=== PATIENT | female | born 1990 | race Caucasian/White ===

== ENCOUNTER 2017-12-29 08:00 | Outpatient (CLI) | payer OTHER | END 2017-12-29 23:59 | disposition home or self-care (01) | LOC: LAB.R 08:00 | PROVIDERS: ATTEND Nurse Practitioner Obstetrics & Gynecology | DX: N89.8 Other specified noninflammatory disorders of vagina (principal) | CPT/HCPCS: 87480; 87510; 87660 ==

== ENCOUNTER 2018-01-19 15:06 | Outpatient (CLI) | payer OTHER | END 2018-01-19 23:59 | disposition home or self-care (01) | LOC: LAB.R 15:06 | PROVIDERS: ATTEND Nurse Practitioner Obstetrics & Gynecology | DX: N76.0 Acute vaginitis (principal) | CPT/HCPCS: 87480; 87510; 87660 ==

== ENCOUNTER 2019-11-12 00:02 | Outpatient (CLI) | payer OTHER | END 2019-11-12 00:03 | disposition EMS.NT | LOC: EMS 00:02 | PROVIDERS: ATTEND Surgery | DX: Z04.1 Encounter for examination and observation following transport accident (principal) ==

== ENCOUNTER 2020-03-06 16:25 | Outpatient (CLI) | payer OTHER ==
--- NOTE | 2020-03-07 17:12 | XRAY Report ---
Reason: COUGH Procedure Date: 03/06/2020 Accession Number: [id number] / [id number] Procedure: XR - Chest 2 View X-Ray CPT Code: 69159 Final Report FULL RESULT: EXAM: CHEST RADIOGRAPHY EXAM DATE: 03/06/2020 04:42 PM. CLINICAL HISTORY: Cough. Intermittent chest pain/pressure. Shortness of breath. COMPARISON: None. TECHNIQUE: 2 views. FINDINGS: Lungs/Pleura: No focal opacities evident. No pleural effusion. No pneumothorax. Normal volumes. Mediastinum: Heart and mediastinal contours are unremarkable. Other: Mild degenerative changes of the thoracic spine. IMPRESSION: 1. No acute disease in the chest. RADIA
== END 2020-03-06 16:26 | disposition home or self-care (01) ==
LOC: DI 16:25
PROVIDERS: ATTEND Nurse Practitioner Family
DX: R05 Cough (principal)
CPT/HCPCS: 71046

== ENCOUNTER 2021-03-07 15:54 | Outpatient (CLI) | payer OTHER ==
[2021-03-07 20:14] LABS: ALBUMIN 4.6 g/dL (3.2-5.5); ALBUMIN/GLOBULIN RATIO 1.7 (1.0-2.2); BILIRUBIN,TOTAL 0.8 mg/dL (0.2-1.0); CALCIUM 9.3 mg/dL (8.5-10.3); CREATININE 0.7 mg/dL (0.4-1.0); POTASSIUM 3.7 mmol/L (3.5-5.0); TOTAL PROTEIN 7.3 g/dL (6.7-8.2)
== END 2021-03-07 15:55 | disposition home or self-care (01) ==
LOC: LAB.S 15:54
PROVIDERS: ATTEND Nurse Practitioner Family
DX: R11.0 Nausea (principal); G25.81 Restless legs syndrome
CPT/HCPCS: 36415; 80053; 82728; 83540; 84466

== ENCOUNTER 2022-03-21 16:27 | Emergency (ER) | payer OTHER, MEDICAID ==
[2022-03-21] MEDS ORDERED: MAG HYDROX/AL HYDROX/SIMETH 30 ML UDC PO STA (16:56)
[2022-03-21] MEDS ORDERED: FAMOTIDINE 20 MG TABLET PO STA (16:56)
[2022-03-21] MEDS ORDERED: SUCRALFATE 1 GM/10 ML UDC PO STA (16:56)
--- NOTE | 2022-03-21 16:57 | ED Physician Documentation ---
History of Present Illness - Stated complaint Stated Complaint: ABD & CP - Chief complaint Chief Complaint: Cardiac - History obtained from History obtained from: Patient - History of Present Illness Timing: Today Pain level max: 7 Pain level now: 1 - Additonal information Additional information: Patient is a 31-year-old female who presents to the emergency department stating that she had epigastric pain radiating up through her chest today. This has been intermittent for several weeks. Seems to be worse after drinking coffee. She states that she had gastroesophageal reflux in her teenage years, but none since. No vomiting. No fevers. No chills. Review of Systems Ten Systems: 10 systems reviewed and negative Constitutional: denies: Fever, Chills Cardiac: denies: Chest pain / pressure Respiratory: denies: Cough GI: denies: Nausea, Vomiting, Diarrhea Skin: denies: Rash Musculoskeletal: denies: Neck pain, Back pain Neurologic: denies: Headache PD PAST MEDICAL HISTORY - Past Medical History Past Medical History: Yes GI: GERD - Past Surgical History Past Surgical History: No - Present Medications Home Medications: Ambulatory Orders Medication Instructions Recorded Confirmed Esomeprazole Magnesium [Nexium] 40 mg PO DAILY #30 cap.sr 03/21/22 Famotidine [Pepcid] 20 mg PO BID #60 tablet 03/21/22 Sucralfate [Carafate] 1 gm PO ACHS #60 tablet 03/21/22 - Allergies Allergies/Adverse Reactions: Allergies Allergy/AdvReac Type Severity Reaction Status Date / Time No Known Drug Allergies Allergy Verified 03/21/22 16:36 - Living Situation Living Arrangement: reports: At home - Social History Does the pt smoke?: Yes Smoking Status: Current every day smoker Does the pt drink ETOH?: No Does the pt have substance abuse?: No - Immunizations Immunizations are current?: Yes - POLST Patient has POLST: No PD ED PE NORMAL - Vitals Vital signs reviewed: Yes - General General: Alert and oriented X 3, No acute distress - HEENT HEENT: Moist mucous membranes - Neck Neck: Supple, no meningeal sign - Cardiac Cardiac: RRR, Strong equal pulses - Respiratory Respiratory: No respiratory distress, Clear bilaterally - Abdomen Abdomen: Soft, Non distended, Other (TTP epigastric/RUQ and LUQ. negative quezada's sign) - Back Back: No CVA TTP, No spinal TTP - Derm Derm: Warm and dry - Neuro Neuro: Alert and oriented X 3 - Psych Psych: Normal mood, Normal affect Results - Vitals Vitals: Vital Signs - 24 hr 03/21/22 03/21/22 03/21/22 16:30 16:37 17:23 Temperature 37.2 C Heart Rate 74 87 69 Respiratory 13 18 12 Rate Blood Pressure 156/89 H 156/89 H 106/65 O2 Saturation 100 99 100 03/21/22 03/21/22 17:49 18:00 Temperature Heart Rate 67 77 Respiratory 18 16 Rate Blood Pressure 105/73 98/63 O2 Saturation 100 100 Oxygen O2 Source Room air - EKG (time done) 1635 Rate: Rate (enter#) (79) Rhythm: NSR [place]: Normal Intervals: Normal DC QRS: Normal Ischemia: Normal ST segments - Labs Labs: Laboratory Tests 03/21/22 03/21/22 03/21/22 16:45 16:45 16:45 WBC 6.6 RBC 4.33 Hgb 14.2 Hct 41.0 MCV 94.7 MCH 32.8 H MCHC 34.6 RDW 11.9 L Plt Count 243 MPV 10.2 Neut # (Auto) 4.3 Lymph # (Auto) 1.9 [place] # (Auto) 0.4 Eos # (Auto) 0.0 Baso # (Auto) 0.0 Absolute Nucleated RBC 0.00 Nucleated RBC % 0.0 Sodium 138 Potassium 3.4 L Chloride 102 Carbon Dioxide 27 Anion Gap 9.0 BUN 7 Creatinine 0.7 Estimated GFR (MDRD) 97 Glucose 98 Calcium 9.2 Total Bilirubin 0.9 AST 20 ALT 18 Alkaline Phosphatase 33 L Troponin I High Sens < 2.3 L Total Protein 7.2 Albumin 4.5 Globulin 2.7 Albumin/Globulin Ratio 1.7 Lipase 32 Urine Color Urine Clarity Urine pH Ur Specific Williams Urine Protein Urine Glucose (UA) Urine Ketones Urine Occult Blood Urine Nitrite Urine Bilirubin Urine Urobilinogen Ur Leukocyte Esterase Ur Microscopic Review Urine Culture Comments Urine HCG, Qual 03/21/22 17:30 WBC RBC Hgb Hct MCV MCH MCHC RDW Plt Count MPV Neut # (Auto) Lymph # (Auto) [place] # (Auto) Eos # (Auto) Baso # (Auto) Absolute Nucleated RBC Nucleated RBC % Sodium Potassium Chloride Carbon Dioxide Anion Gap BUN Creatinine Estimated GFR (MDRD) Glucose Calcium Total Bilirubin AST ALT Alkaline Phosphatase Troponin I High Sens Total Protein Albumin Globulin Albumin/Globulin Ratio Lipase Urine Color YELLOW Urine Clarity CLEAR Urine pH 7.5 Ur Specific Williams 1.015 Urine Protein NEGATIVE Urine Glucose (UA) NEGATIVE Urine Ketones NEGATIVE Urine Occult Blood NEGATIVE Urine Nitrite NEGATIVE Urine Bilirubin NEGATIVE Urine Urobilinogen 0.2 (NORMAL) Ur Leukocyte Esterase NEGATIVE Ur Microscopic Review NOT INDICATED Urine Culture Comments NOT INDICATED Urine HCG, Qual NEGATIVE - Rads (name of study) cxr Radiology: Final report received, EMP read contemporaneously, See rad report RUQ US Radiology: Final report received, EMP read contemporaneously, See rad report PD MEDICAL DECISION MAKING - ED course Complexity details: reviewed results, re-evaluated patient, considered differential, d/w patient ED course: 31-year-old female with epigastric/upper abdominal/chest pain today. No acute findings on ultrasound. No acute findings on laboratory testing, EKG, chest x- ray. Symptoms resolved with GI cocktail. Likely GERD. Patient is well-appearing, nontoxic. Afebrile. Tolerating p.o. without difficulty. We will place on medication for GERD. Counseled on dietary changes. She will follow-up with her doctor for an EGD. Patient counseled regarding signs and symptoms for which I believe and urgent re-evaluation would be necessary. Patient with good understanding of and agreement to plan and is comfortable going home at this time This document was made in part using voice recognition software. While efforts are made to proofread this document, sound alike and grammatical errors may occur. RUQ US IMPRESSION: Mild hepatic steatosis. Otherwise, unremarkable exam. CXR IMPRESSION: Chest without acute cardiopulmonary abnormalities. No focal airspace disease. Departure - Departure Disposition: 01 Home, Self Care Clinical Impression: Gastritis Qualifiers: Gastritis type: unspecified gastritis Chronicity: acute Gastritis bleeding: without bleeding Qualified Code(s): K29.00 - Acute gastritis without bleeding Condition: Good Instructions: ED PUD Vs Gastritis Follow-Up: LASHANDA MCCLAIN ARNP [Primary Care Provider] - Within 1 week Prescriptions: Sucralfate [Carafate] 1 gm PO ACHS #60 tablet Esomeprazole Magnesium [Nexium] 40 mg PO DAILY #30 cap.sr Famotidine [Pepcid] 20 mg PO BID #60 tablet Comments: Your prescriptions were sent to [facility] in [place]. Please follow-up with your doctor for further care. Return if you worsen. Your heart test did not show any acute abnormalities today. Your ultrasound does show evidence of a fatty liver, but no gallstones. Your doctor may want to refer you for an EGD to evaluate for gastritis versus an ulcer. Try to avoid alcohol, caffeine, energy drinks, NSAIDs such as Motrin or Aleve. These may all worsen your symptoms. Discharge Date/Time: 03/21/22 18:43
[2022-03-21 17:08] LABS: BASOPHILS % (AUTO) 0.5 %; EOSINOPHILS % (AUTO) 0.3 %; HGB - HEMOGLOBIN 14.2 g/dL (12.0-16.0); LYMPHOCYTES # (AUTO) 1.9 10^3/uL (1.5-3.5); LYMPHOCYTES % (AUTO) 28.9 %; MEAN CORPUSCULAR HEMOGLOBIN 32.8 pg (27.0-31.0); MEAN CORPUSCULAR HGB CONC 34.6 g/dL (32.0-36.0); MEAN CORPUSCULAR VOLUME 94.7 fL (81.0-99.0); MEAN PLATELET VOLUME 10.2 fL (7.9-10.8); MONOCYTES # (AUTO) 0.4 10^3/uL (0.0-1.0); MONOCYTES % (AUTO) 5.8 %; NEUTROPHILS # (AUTO) 4.3 10^3/uL (1.5-6.6); NEUTROPHILS % (AUTO) 64.3 %; PLT - PLATELET COUNT 243 10^3/uL (130-450); RED BLOOD COUNT 4.33 10^6/uL (4.20-5.40); RED CELL DISTRIBUTION WIDTH 11.9 % (12.0-15.0); WHITE BLOOD COUNT 6.6 x10^3/uL (4.8-10.8)
--- NOTE | 2022-03-21 17:15 | XRAY Report ---
PROCEDURE: Chest 1 View X-Ray INDICATIONS: Chest pain TECHNIQUE: One view of the chest was acquired. COMPARISON: 03/06/2020 FINDINGS: Surgical changes and devices: None. Lungs and pleura: No pleural effusions or pneumothorax. Lungs are clear. Mediastinum: Mediastinal contours appear normal. Heart size is normal. Bones and chest wall: No suspicious bony lesions. Overlying soft tissues appear unremarkable. IMPRESSION: Chest without acute cardiopulmonary abnormalities. No focal airspace disease. Reviewed by: Roldan Robles MD on 03/21/2022 5:14 PM PDT Approved by: Roldan Robles MD on 03/21/2022 5:14 PM PDT Station ID: [id number]
[2022-03-21 17:23] LABS: ALBUMIN 4.5 g/dL (3.2-5.5); ALBUMIN/GLOBULIN RATIO 1.7 (1.0-2.2); BILIRUBIN,TOTAL 0.9 mg/dL (0.2-1.0); CALCIUM 9.2 mg/dL (8.5-10.3); CREATININE 0.7 mg/dL (0.4-1.0); POTASSIUM 3.4 mmol/L (3.5-5.0); TOTAL PROTEIN 7.2 g/dL (6.7-8.2)
[2022-03-21 18:04] VITALS: BP 98/63
[2022-03-21 18:22] LABS: BILIRUBIN,URINE NEGATIVE (NEGATIVE); GLUCOSE, URINE (UA) NEGATIVE (NEGATIVE); KETONES,URINE (UA) NEGATIVE (NEGATIVE); LEUKOCYTE ESTERASE, URINE NEGATIVE (NEGATIVE); NITRITE,URINE NEGATIVE (NEGATIVE); OCCULT BLOOD,URINE NEGATIVE (NEGATIVE); PH,URINE 7.5 PH (5.0-7.5); PROTEIN,URINE NEGATIVE (NEGATIVE); UROBILINOGEN,URINE 0.2 (NORMAL) E.U./dL (NORMAL)
[2022-03-21 18:28] LABS: CLARITY,URINE CLEAR (CLEAR); HCG UR QUAL NEGATIVE
--- NOTE | 2022-03-21 18:34 | Ultrasound Report ---
PROCEDURE: Abdomen Limited INDICATIONS: RUQ abd pain TECHNIQUE: Real-time scanning was performed of the abdominal and retroperitoneal organs, with image documentatio n. COMPARISON: None. FINDINGS: Liver: Liver is normal in size and mildly increased in echotexture. Gallbladder: Doppler demonstrate no stones. Wall thickness is normal measuring 1.4 mm. Biliary ducts: Intrahepatic bile ducts are non-dilated. Extrahepatic bile duct caliber measures 3.7 mm. Normal is 6-7 mm or less in diameter, or 10 mm or less post-cholecystectomy. Pancreas: Visualized portions of the pancreas are sonographically normal. Kidneys: Right kidney measures 10.7 cm long. No hydronephrosis or nephrolithiasis. No solid masses . Aorta: Visualized aorta is normal in caliber at less than 3 cm. Iliacs: Proximal common iliac arteries are normal in caliber at less than 2.5 cm. IVC: Intrahepatic inferior vena cava is patent. Miscellaneous: No free abdominal fluid. IMPRESSION: Mild hepatic steatosis. Otherwise, unremarkable exam. Reviewed by: Jaimie Peguero MD on 03/21/2022 5:33 PM DALE Approved by: Jaimie Peguero MD on 03/21/2022 5:33 PM ADLE Station ID: [id number]
== END 2022-03-21 18:43 | disposition home or self-care (01) ==
LOC: ED 16:27
DX: K29.00 Acute gastritis without bleeding (principal); F17.200 Nicotine dependence, unspecified, uncomplicated
CPT/HCPCS: 36415; 71045; 76705; 80053; 81003; 81025; 83690; 84484; 85025; 93005; 99283; 99284; A9270; 81001; 87086

== ENCOUNTER 2023-11-12 07:33 | Outpatient (CLI) | payer OTHER, MEDICAID ==
--- NOTE | 2023-11-13 08:27 | Mammography Report ---
BILATERAL DIGITAL DIAGNOSTIC MAMMOGRAM 3D/2D WITH AUGMENTATION: 11/12/2023 CLINICAL: Patient returns for a 6 month follow up of the right breast, due for bilateral exam. Comparison is made to exam dated: 12/06/2021 mammogram - [facility]. Both breasts are extremely dense, which lowers the sensitivity of mammography (category d />75% gland ular tissue). Bilateral retropectoral saline implants are intact. No significant masses, calcifications, or other findings are seen in either breast. IMPRESSION: INCOMPLETE: NEEDS ADDITIONAL IMAGING EVALUATION There is no abnormality seen in the right breast to correspond with the palpable abnormality, however , ultrasound is recommended. There is no abnormality seen in the left breast to correspond with the ultrasound finding, however, ultrasound is recommended. Based on the Tyrer Cuzick model (a risk assessment model) the patients lifetime risk is 13.0% and he r 10 year risk is 0.8%. According to the ACR, ACS, and NCCN guidelines, an annual breast MRI exam laila ng with mammogram is recommended if the patients lifetime risk is 20% or greater. This exam was interpreted at Station ID: [id number]. NOTE: For mammograms, a report in lay terms will be sent to the patient. Approximately 15% of breast malignancies will not be visualized mammographically. In the management of a palpable breast mass, a negative mammogram must not discourage biopsy of a clinically suspicious lesion. Electronically Signed By: Jose Guadalupe adams/parul:11/12/2023 16:34:56 ACR BI-RADS Category 0: Incomplete 3340F PARENCHYMAL PATTERN: (VD) - The breast(s) demonstrate(s) extremely dense parenchyma, limiting the sen sitivity of mammography. BI-RADS CATEGORY: (0) - 0 Ultrasound [id number] Immediate follow-up LATERALITY: (B)
--- NOTE | 2023-11-13 08:27 | Ultrasound Report ---
LIMITED ULTRASOUND OF RIGHT BREAST: 11/12/2023 CLINICAL: Palpable right breast lump. Comparison is made to exams dated: 11/12/2023 ultrasound, 11/12/2023 mammogram - [facility], 12/06/2021 mammogram, and 12/06/2021 ultrasound - [facility]. Ultrasound of the right breast 10-11 o'clock region was performed. Cruz scale images of the real-arian e examination were reviewed. No significant abnormalities were seen sonographically in the right breast. IMPRESSION: NEGATIVE There is no sonographic evidence of malignancy. There is no abnormality seen in the right breast to correspond with the palpable abnormality, however , clinical followup is recommended. This exam was interpreted at Station ID: [id number]. Electronically Signed By: Jose Guadalupe adams/parul:11/12/2023 16:35:51 Ultrasound BI-RADS: 1 Negative BI-RADS CATEGORY: (1) - 1 RECOMMENDATION: (ADDMAM) - Recommend additional mammographic views. no recall/no msg LATERALITY: (B)
--- NOTE | 2023-11-13 08:27 | Ultrasound Report ---
LIMITED ULTRASOUND OF LEFT BREAST: 11/12/2023 CLINICAL: Patient returns today to evaluate a focal asymmetry in the left breast. Comparison is made to exams dated: 11/12/2023 mammogram - [facility], 12/06/2021 ma mmogram, and 12/06/2021 ultrasound - [facility]. Color flow ultrasound of the left breast 12-1 o'clock region was performed. Cruz scale images of th e real-time examination were reviewed. There is a stable benign 1.2 cm x 2.5 cm x 0.6 cm oval mass with a circumscribed margin in the left b reast at 12 o'clock anterior depth 4 cm from the nipple. This oval mass is hypoechoic. This lesion has not significantly changed when compared to the prior ultrasound from 12/06/2021, and is therefore considered benign. IMPRESSION: BENIGN There is no sonographic evidence of malignancy. The stable 1.2 cm x 2.5 cm x 0.6 cm oval mass in the left breast resembles a fibroadenoma and is malcolm gn. Recommend annual screening mammograms beginning at age 40 if the patient is not at an increased risk for breast malignancy. This exam was interpreted at Station ID: [id number]. Electronically Signed By: Jose Guadalupe Samson M.D. ar/:11/12/2023 16:38:36 Ultrasound BI-RADS: 2 Benign BI-RADS CATEGORY: (2) - 2 RECOMMENDATION: (ADDMAM) - Recommend additional mammographic views. no recall/no msg LATERALITY: (B)
== END 2023-11-12 07:34 | disposition home or self-care (01) ==
LOC: DI 07:33
PROVIDERS: ATTEND Physician Assistant
DX: N63.11 Unspecified lump in the right breast, upper outer quadrant (principal); N63.25 Unspecified lump in the left breast, overlapping quadrants; Z98.82 Breast implant status

== ENCOUNTER 2024-01-23 13:11 | Outpatient (CLI) | payer OTHER, MEDICAID ==
[2024-01-23 20:12] LABS: BASOPHILS % (AUTO) 0.4 %; EOSINOPHILS % (AUTO) 0.4 %; HCT - HEMATOCRIT 40.8 % (37.0-47.0); HGB - HEMOGLOBIN 13.9 g/dL (12.0-16.0); LYMPHOCYTES % (AUTO) 27.6 %; MEAN CORPUSCULAR HEMOGLOBIN 32.8 pg (27.0-31.0); MEAN CORPUSCULAR HGB CONC 34.1 g/dL (32.0-36.0); MEAN CORPUSCULAR VOLUME 96.2 fL (81.0-99.0); MEAN PLATELET VOLUME 11.6 fL (7.9-10.8); MONOCYTES # (AUTO) 0.4 10^3/uL (0.0-1.0); MONOCYTES % (AUTO) 5.5 %; NEUTROPHILS # (AUTO) 4.8 10^3/uL (1.5-6.6); PLT - PLATELET COUNT 277 10^3/uL (130-450); RED BLOOD COUNT 4.24 10^6/uL (4.20-5.40); RED CELL DISTRIBUTION WIDTH 11.8 % (12.0-15.0); WHITE BLOOD COUNT 7.2 x10^3/uL (4.8-10.8)
[2024-01-23 20:35] LABS: ALBUMIN 4.4 g/dL (3.2-5.5); ALBUMIN/GLOBULIN RATIO 1.7 (1.0-2.2); BILIRUBIN,TOTAL 0.6 mg/dL (0.2-1.0); CALCIUM 9.5 mg/dL (8.5-10.3); CREATININE 0.6 mg/dL (0.6-1.3); POTASSIUM 3.8 mmol/L (3.5-4.5)
[2024-01-23 20:46] LABS: THYROID STIMULATING HORMONE 1.26 uIU/mL (0.34-5.60)
== END 2024-01-23 13:12 | disposition home or self-care (01) ==
LOC: LAB.S 13:11
PROVIDERS: ATTEND Physician Assistant Medical
DX: Z00.00 Encounter for general adult medical examination without abnormal findings (principal); L65.9 Nonscarring hair loss, unspecified
CPT/HCPCS: 36415; 80053; 84443; 85025